=== PATIENT | female | born 1985 | race Caucasian/White ===

== ENCOUNTER 2018-04-18 18:27 | Emergency (ER) | payer MEDICAID ==
[~2018-04-18] VITALS: Ht 167.6 cm; Wt 101.3 kg
[2018-04-18 18:30] VITALS: Ht 167.6 cm; Wt 101.3 kg
[2018-04-18 19:32] VITALS: BP 133/80
== END 2018-04-18 19:32 | disposition home or self-care (01) ==
LOC: ED 18:27
DX: M25.462 Effusion, left knee (principal); F12.90 Cannabis use, unspecified, uncomplicated; E66.9 Obesity, unspecified
CPT/HCPCS: J1100; J1885; Q0092

== ENCOUNTER 2020-02-09 15:49 | Emergency (ER) | payer OTHER ==
[~2020-02-09] VITALS: Ht 167.6 cm; Wt 106.6 kg
[2020-02-09 15:53] VITALS: BP 156/78; Ht 167.6 cm; Wt 106.6 kg
== END 2020-02-09 16:35 | disposition home or self-care (01) ==
LOC: ED 15:49
DX: H60.91 Unspecified otitis externa, right ear (principal)